=== PATIENT | male | born 1960 | race American Indian/Alaskan Native ===

== ENCOUNTER → 2018-11-22 | Emergency (ER) | payer MEDICAID ==
[2018-11-22 08:39] VITALS: BP 141/77; PULSE 80; RESP 18; TEMP 98; O2SAT 99
--- NOTE | 2018-11-22 09:06 | C.PDOC ---
History Of Present Illness 58 year old male presents to the ED requesting heroin and cocaine detox. Patient states last use of both was two days ago. He denies suicidal/homicidal ideation at this time. Time Seen by Provider: 11/22/18 08:50 Chief Complaint (Nursing): Substance Abuse History Per: Patient History/Exam Limitations: no limitations Onset/Duration Of Symptoms: Days (2) Current Symptoms Are (Timing): Still Present Modifying Factor(s): Cocaine, Other (heroin) Associated Symptoms: denies: Suicidal Thoughts, Suicidal Plan Involuntary Hold By: None Recent travel outside of the [place]: No Additional History Per: Patient Past Medical History Reviewed: Historical Data, Nursing Documentation, Vital Signs Vital Signs: Last Vital Signs Temp 98 F 11/22/18 08:33 Pulse 80 11/22/18 08:33 Resp 18 11/22/18 08:33 BP 141/77 11/22/18 08:33 Pulse Ox 99 11/22/18 08:33 - Medical History PMH: Depression, HTN, Schizophrenia Surgical History: No Surg Hx Family History: States: Unknown Family Hx - Social History Hx Alcohol Use: Yes Hx Substance Use: Yes - Immunization History Hx Tetanus Toxoid Vaccination: No Hx Influenza Vaccination: No Hx Pneumococcal Vaccination: No Review Of Systems Except As Marked, All Systems Reviewed And Found Negative. Psych: Positive for: Other (heroin and cocaine detox) Physical Exam - Physical Exam Appears: Non-toxic, No Acute Distress Skin: Normal Color, Warm, Dry Head: Atraumatic, Normacephalic Eye(s): bilateral: Normal Inspection Oral Mucosa: Moist Neck: Supple Chest: Symmetrical, No Deformity, No Tenderness Cardiovascular: Rhythm Regular, No Murmur Respiratory: Normal Breath Sounds, No Rales, No Rhonchi, No Wheezing Extremity: Normal ROM Neurological/Psych: Oriented x3, Normal Speech, Normal Cognition ED Course And Treatment O2 Sat by Pulse Oximetry: 99 (on RA) Pulse Ox Interpretation: Normal Medical Decision Making Medical Decision Making: pending medical clearance - upon dc pt voice si no plan. case discussed with crisis no 1 to 1 needed. pt later eloped. mobile crisis made aware Disposition - Disposition Disposition: HOME/ ROUTINE Disposition Time: 09:00 Condition: STABLE Additional Instructions: please call ahead for the bed. return to any er with worsening symptoms or concerns. Instructions: Drug Abuse and Drug Addiction (DC) Forms: [facility] (Scottish) - Clinical Impression Clinical Impression: Drug abuse - Scribe Statement The provider has reviewed the documentation as recorded by the Scribe (Kylee Alvarez) Provider Attestation: All medical record entries made by the Scribe were at my direction and personally dictated by me. I have reviewed the chart and agree that the record accurately reflects my personal performance of the history, physical exam, medical decision making, and the department course for this patient. I have also personally directed, reviewed, and agree with the discharge instructions and disposition.
== END | disposition home or self-care (01) ==
LOC: C.ER 08:29
DX: F19.10 Other psychoactive substance abuse, uncomplicated (principal)